=== PATIENT | female | born 1940 | race Caucasian/White ===

== ENCOUNTER 2018-08-16 18:37 | Emergency (ER) | payer MEDICARE ==
[~2018-08-16] VITALS: Ht 162.6 cm; Wt 60.2 kg
[~2018-08-16 18:37] MED LIST: ALBU4; ASPI81CH; CALCA500CH; DIGO.05EL; ELIQUIS5 MG; FLUSAL2505; FURO40; MONT10T; NEBI10; PRAM.5; Pravachol40 MG; TIOT18
[2018-08-16 19:25] LABS: BASOPHILS ABSOLUTE AUTO 0.03 K/mm3 (0.00-0.23); BASOPHILS PERCENT AUTO 0 % (0-2); EOSINOPHILS PERCENT AUTO 1 % (0-6); Hemoglobin 13.9 g/dL (11.5-16.0); IMMATURE GRAN ABSOLUTE AUTO 0.05 K/mm3 (0.00-0.10); IMMATURE GRAN PERCENT AUTO 1 % (0-1); LYMPHOCYTES ABSOLUTE AUTO 0.98 K/mm3 (0.84-5.20); LYMPHOCYTES PERCENT AUTO 10 % (21-46); MONOCYTES PERCENT AUTO 9 % (4-13); Mean Corpuscular HGB 27.7 pg (26.0-34.0); Mean Corpuscular HGB Conc 30.9 g/dL (31.5-36.5); Mean Corpuscular Volume 90 fL (80-100); NEUTROPHILS ABSOLUTE AUTO 7.48 K/mm3 (1.96-9.15); NEUTROPHILS PERCENT AUTO 79 % (41-73); Platelet Count 176 K/mm3 (150-400); RDW Coefficient Variation 12.8 % (11.7-14.2); Red Blood Cell Count 5.01 M/mm3 (3.80-5.20); White Blood Cell Count 9.44 K/mm3 (4.00-11.30)
[2018-08-16 19:46] LABS: Alanine Aminotransfer (ALT/SGP 21 U/L (12-78); Albumin, Blood 2.9 g/dL (3.4-5.0); Albumin/Globulin Ratio 0.5 (0.8-1.8); Alk Phos 122 U/L (50-136); Anion Gap 6 mmol/L (6-16); Aspartate Aminotrans (AST/SGOT 34 U/L (12-37); Bilirubin, Total 1.2 mg/dL (0.1-1.0); Blood Urea Nitrogen 15 mg/dL (8-24); Bun/Creatinine Ratio 22.7 (12.0-20.0); CO2, Blood 38 mmol/L (21-32); Chloride, Blood 92 mmol/L (98-108); Creatinine, Blood 0.66 mg/dL (0.40-1.00); Globulin, Blood 5.5 g/dL (2.2-4.0); Glomerular Filtration Rate >60 (60-); Glucose, Blood 94 mg/dL (70-99); Potassium, Blood 3.5 mmol/L (3.5-5.5); Sodium, Blood 136 mmol/L (136-145); Total Protein, Blood 8.4 g/dL (6.4-8.2); Troponin I 0.023 ng/mL (0.000-0.040)
[2018-08-16 21:04] LABS: Source, Urine Clean Catch
[2018-08-16 21:06] LABS: Bilirubin, Urine Neg (Neg); Blood, Urine 2+ (Neg); Glucose Qualitative, Urine Neg (Neg); Ketones, Urine Neg (Neg); Leukocyte Esterase, Urine 1+ (Neg); Nitrite, Urine Neg (Neg); Protein, Urine Neg (Neg); Specific Gravity, Urine 1.015 (1.003-1.022); Urobilinogen, Urine 2+ (Normal)
[2018-08-16 21:18] LABS: Appearance, Urine Hazy (Clear); Color, Urine Yellow (P-Yellow)
[2018-08-16 21:18] LABS: Influenza A Negative (NEGATIVE); Influenza B Negative (NEGATIVE)
[2018-08-16 21:20] LABS: Bacteria Mod /hpf; Red Blood Cells, Urine 0-2 /hpf (0-2); Squamous Epithelial Cells Few /hpf (Few)
[2018-08-16] MEDS ORDERED: Prednisone20 MG PO (21:59)
[2018-08-16] MEDS ORDERED: Avelox400 MG PO (21:59)
== END 2018-08-16 22:09 | disposition home or self-care (01) ==
LOC: ER 18:37
PROVIDERS: Emergency Medicine; Physician Assistant
DX: J44.1 Chronic obstructive pulmonary disease with (acute) exacerbation (principal); J44.0 Chronic obstructive pulmonary disease with (acute) lower respiratory infection; J18.9 Pneumonia, unspecified organism; I48.91 Unspecified atrial fibrillation; I25.10 Atherosclerotic heart disease of native coronary artery without angina pectoris; I10 Essential (primary) hypertension; Z88.8 Allergy status to other drugs, medicaments and biological substances; Z79.899 Other long term (current) drug therapy; Z79.82 Long term (current) use of aspirin; Z79.01 Long term (current) use of anticoagulants; Z87.891 Personal history of nicotine dependence
CPT/HCPCS: 36415; 71046; 80053; 81001; 83880; 84484; 85025; 87086; 87804; 93005; 93010; 94644; 96374; 99284-25; J2930

== ENCOUNTER → 2019-02-01 | Outpatient (CLI) | payer MEDICARE ==
[~2019-02-01] MED LIST changes: +Avelox400 MG PO; +Prednisone20 MG PO
== END | disposition home or self-care (01) ==
LOC: LAB EV 09:50
DX: J47.1 Bronchiectasis with (acute) exacerbation (principal)
CPT/HCPCS: 87070; 87077; 87186; 87205

== ENCOUNTER 2019-03-18 13:24 | Inpatient (IN) | payer MEDICARE ==
[~2019-03-18] VITALS: Ht 162.6 cm; Wt 54.3 kg
[~2019-03-18 13:24] MED LIST changes: -ASPI81CH; -FLUSAL2505
[2019-03-18 14:16] LABS: BASOPHILS ABSOLUTE AUTO 0.04 K/mm3 (0.00-0.23); BASOPHILS PERCENT AUTO 1 % (0-2); EOSINOPHILS ABSOLUTE AUTO 0.03 K/mm3 (0.00-0.68); EOSINOPHILS PERCENT AUTO 0 % (0-6); Hematocrit 37.9 % (33.0-51.0); Hemoglobin 11.4 g/dL (11.5-16.0); IMMATURE GRAN ABSOLUTE AUTO 0.04 K/mm3 (0.00-0.10); IMMATURE GRAN PERCENT AUTO 1 % (0-1); LYMPHOCYTES ABSOLUTE AUTO 0.73 K/mm3 (0.84-5.20); LYMPHOCYTES PERCENT AUTO 9 % (21-46); MONOCYTES ABSOLUTE AUTO 0.53 K/mm3 (0.16-1.47); MONOCYTES PERCENT AUTO 6 % (4-13); Mean Corpuscular HGB 26.7 pg (26.0-34.0); Mean Corpuscular HGB Conc 30.1 g/dL (31.5-36.5); Mean Corpuscular Volume 89 fL (80-100); Mean Platelet Volume 10.9 fL (9.1-12.4); NEUTROPHILS ABSOLUTE AUTO 7.08 K/mm3 (1.96-9.15); NEUTROPHILS PERCENT AUTO 84 % (41-73); Platelet Count 177 K/mm3 (150-400); RDW Coefficient Variation 13.6 % (11.7-14.2); RDW Standard Deviation 44.2 fL (35.1-46.3); Red Blood Cell Count 4.27 M/mm3 (3.80-5.20); White Blood Cell Count 8.45 K/mm3 (4.00-11.30)
[2019-03-18 14:38] LABS: Alanine Aminotransfer (ALT/SGP 27 U/L (12-78); Albumin, Blood 2.7 g/dL (3.4-5.0); Albumin/Globulin Ratio 0.5 (0.8-1.8); Alk Phos 120 U/L (50-136); Anion Gap 5 mmol/L (6-16); Aspartate Aminotrans (AST/SGOT 40 U/L (12-37); Bilirubin, Total 1.5 mg/dL (0.1-1.0); Blood Urea Nitrogen 24 mg/dL (8-24); Bun/Creatinine Ratio 31.5 (12.0-20.0); CO2, Blood 42 mmol/L (21-32); Calcium, Blood 9.4 mg/dL (8.5-10.1); Chloride, Blood 88 mmol/L (98-108); Creatinine, Blood 0.76 mg/dL (0.40-1.00); Globulin, Blood 5.5 g/dL (2.2-4.0); Glomerular Filtration Rate >60 (60-); Glucose, Blood 138 mg/dL (70-99); Potassium, Blood 3.2 mmol/L (3.5-5.5); Sodium, Blood 135 mmol/L (136-145); Total Protein, Blood 8.2 g/dL (6.4-8.2)
[2019-03-18 14:41] LABS: Troponin I 0.025 ng/mL (0.000-0.040)
[2019-03-18] MEDS ORDERED: FLUT1DIS5 INH ×2 (14:59→16:36)
[2019-03-18] MEDS ORDERED: Bystolic20 MG PO (14:59)
[2019-03-18] MEDS ORDERED: ELIQUIS5 MG PO (15:01)
[2019-03-18] MEDS ORDERED: GUAI600T33 PO (15:02)
[2019-03-18] MEDS ORDERED: FURO40 PO (15:02)
[2019-03-18] MEDS ORDERED: MONT10T PO (15:02)
[2019-03-18] MEDS ORDERED: Mirapex0.25 MG PO (15:03)
[2019-03-18] MEDS ORDERED: Prilosec Otc20 MG PO (15:03)
[2019-03-18] MEDS ORDERED: Pravachol40 MG PO (15:03)
[2019-03-18] MEDS ORDERED: ALBU90OI6 INH (15:04)
[2019-03-18] MEDS ORDERED: TIOT18 INH (15:05)
[2019-03-18] MEDS ORDERED: SPIR25 PO (15:05)
[2019-03-18] MEDS ORDERED: ASPI81CH PO (16:31)
[2019-03-18] MEDS ORDERED: THERA1 EACH PO (16:33)
[2019-03-18] MEDS ORDERED: Micro-K10 MEQ PO (16:35)
[2019-03-18] MEDS ORDERED: Flonase 0.05% N16 GM (16:36)
--- NOTE | 2019-03-18 18:21 | NUR ---
PT ADMITTED PT ADMITTED AT 1730. PT IN STABLE CONDITION WITH VSS. PT REQUIRES 3L O2 VIA NC TO SAT IN THE 90S. PT STATES HER BASELINE IS 3L WELL. PT ORIENTED TO ROOM & CALL LIGHT IN REACH. PT DESATS WITH ACIVITY. NO OTHER CHANGES IN ASSESSMENT AT THIS TIME. WILL CONTINUE TO MONITOR UNTIL TURNOVER IS COMPLETE.
--- NOTE | 2019-03-19 03:52 | NUR ---
PTS TELEMETRY REFLECTS AFIB WITH HEART RATE [address] COUN[address] [place] DR FORMAN ADIVSED WITH NO ORDERS EXCEPT TO CONTINUE MONITORING.
[2019-03-19 04:57] LABS: BASOPHILS PERCENT AUTO 0 % (0-2); EOSINOPHILS PERCENT AUTO 0 % (0-6); Hematocrit 36.9 % (33.0-51.0); Hemoglobin 11.2 g/dL (11.5-16.0); IMMATURE GRAN ABSOLUTE AUTO 0.03 K/mm3 (0.00-0.10); IMMATURE GRAN PERCENT AUTO 1 % (0-1); LYMPHOCYTES ABSOLUTE AUTO 0.42 K/mm3 (0.84-5.20); LYMPHOCYTES PERCENT AUTO 7 % (21-46); MONOCYTES ABSOLUTE AUTO 0.07 K/mm3 (0.16-1.47); MONOCYTES PERCENT AUTO 1 % (4-13); Mean Corpuscular HGB 26.5 pg (26.0-34.0); Mean Corpuscular HGB Conc 30.4 g/dL (31.5-36.5); Mean Corpuscular Volume 87 fL (80-100); Mean Platelet Volume 11.1 fL (9.1-12.4); NEUTROPHILS ABSOLUTE AUTO 5.15 K/mm3 (1.96-9.15); NEUTROPHILS PERCENT AUTO 91 % (41-73); Platelet Count 165 K/mm3 (150-400); RDW Coefficient Variation 13.7 % (11.7-14.2); RDW Standard Deviation 43.7 fL (35.1-46.3); Red Blood Cell Count 4.22 M/mm3 (3.80-5.20); White Blood Cell Count 5.67 K/mm3 (4.00-11.30)
--- NOTE | 2019-03-19 05:03 | NUR ---
0450 BP 91/56, HEART RATE 128, TELEMETRY REFLECTS AFIB. PT DENIES SOB OR CHEST PAIN, NO DIAPHRESIS NOTED. PT VOICED THAT SHE TOOK SOME OF OWN MEDS LAST NIGHT AT 2030: ELIQUIS 5MG AND SPIRIVA INHALER (THESE MEDS WERE AND OTHERS WERE PLACED IN LOCKED MEDICATION DRAWER OUTSIDE OF ROOM). THIS NURSE EDUCATED PATIENT ON NEED TO AVOID TAKING ANY OTHER MEDS FROM [facility] AND TO SEND EVERYTHING HOME. THIS NURSE ADVISED PHARMICIST--WAYLON OF THE ABOVE. DR PAGAN ADVISED OF THE ABOVE WITH ORDERS TO CONTINUE MONITORING. SUMMARY: 78 Y/O SLENDER FEMALE RESTED COMFORTABLY ALL EVENING. SEE NOTATION ABOVE FROM 0450. PT DENIES PAIN OR NAUSEA. PT HAPPY AND COOPERATIVE WITH STAFF WHILE WEARING O2 AT 3L/M PER NASAL CANNULA. PT CONTINUES TO HAVE +2 PITTING PEDAL EDEMA. PTS BED LOW POSITION, BED ALARM APPLIED, CALL LIGHT AT SIDE.
[2019-03-19 05:20] LABS: Alanine Aminotransfer (ALT/SGP 26 U/L (12-78); Albumin, Blood 2.5 g/dL (3.4-5.0); Albumin/Globulin Ratio 0.5 (0.8-1.8); Alk Phos 113 U/L (50-136); Anion Gap 8 mmol/L (6-16); Aspartate Aminotrans (AST/SGOT 41 U/L (12-37); Bilirubin, Total 0.9 mg/dL (0.1-1.0); Blood Urea Nitrogen 32 mg/dL (8-24); Bun/Creatinine Ratio 38.6 (12.0-20.0); CO2, Blood 37 mmol/L (21-32); Calcium, Blood 9.1 mg/dL (8.5-10.1); Chloride, Blood 88 mmol/L (98-108); Creatinine, Blood 0.83 mg/dL (0.40-1.00); Globulin, Blood 5.2 g/dL (2.2-4.0); Glomerular Filtration Rate >60 (60-); Glucose, Blood 175 mg/dL (70-99); Potassium, Blood 3.4 mmol/L (3.5-5.5); Sodium, Blood 133 mmol/L (136-145); Total Protein, Blood 7.7 g/dL (6.4-8.2)
[2019-03-19 05:29] LABS: Troponin I 0.017 ng/mL (0.000-0.040)
[2019-03-19 05:31] LABS: Digoxin (Lanoxin) <0.06 ug/mL (0.80-2.00)
--- NOTE | 2019-03-19 09:16 | NUR ---
ELEVATED HR. PCU ARCHIVIST POLITICAL HISTORY CALLED TO INFORM THIS RN THAT THE PT HR WAS INCREASING TO THE 130S-140S. VITAL SIGNS RETAKEN. BP 98/55 & HR 130. UNABLE TO GET MANUAL PULSE DUE TO SPEED & IRREGULARITY OF HR. DR. WAGNER NOTIFIED OF THIS. NO PHYSICAL CHANGES IN PT CONDITION. DR. WAGNER STATED HE WOULD ORDER DIGOXIN FOR THE PT TO BE GIVEN STAT. WILL CONTINUE TO MONITOR.
--- NOTE | 2019-03-19 12:57 | NUR ---
Pt visit this afternoon. Pt inquires about life sustaining measures. Started to educate on life sustaining measures and Pt requested to have her present for education. Pt reports that she will have bedside nurse contact palliative care when he arrives. Spoke with Pt's bedside nurse An and she expresses concerns of Pt and husbands level of understanding for code status and life sustaining measures. Palliative care will make visit when is present.
--- NOTE | 2019-03-19 13:55 | NUR ---
150-160 HR PCU BASKETBALL COACH NOTIFIED THIS RN THAT PT HR WAS INCREASED TO 150S-160S & IN AFIB. DR. WAGNER NOTIFIED OF THIS INFORMATION. STATED HE WANTS TO GIVE THE DIGOXIN A LITTLE LONGER TO WORK BEFORE GIVING ANYTHING IN ORDER PREVENT HYPOTENSION. PT IS CURRENTLY AT 100/69. STATED TO CONTINUE MONITORING PT FOR CHANGES. CHARGE NURSE, DIEGO NOTIFIED. WILL CONTINUE TO MONITOR.
--- NOTE | 2019-03-19 15:05 | NUR ---
Pt visit this afternoon. Pt's has arrived. Pt is A&Ox4 and denies pain at this time. Pt denies dyspnea at this time. She does report dyspnea with exertion. Engaged in therapeutic discussion regarding code staus and POLST. Educated Pt on life sustaining measures including risk factors with V/U made by both Pt and . Pt request to complete a POLST. reports Pt has an advance directive already completed but would like Pt to have both. Pt chooses DNR and Limited Treatment. Engaged in therapeutic conversation regarding advance care planing. Encouraged Pt to have routine discussions with PCP and specialists regarding her disease process and trajectory of disease in order to plan accordingly. Educated on the importance of planing of disease process and the need for care may increase. V/U made by both Pt and . No other concerns reported at this time. Spoke with Pt's bedside nurse An and she reports no other concerns at this time. Called and spoke with Dr Rivas regarding Pt's wishes and POLST. Dr Rivas reports that he will sign POLST when he visits Pt. Plan: Obtain copy of POLST once signed by . Will change code status to DNR in [facility] per V/O from Dr Rivas.
--- NOTE | 2019-03-19 17:39 | NUR ---
SHIFT SUMMARY PT CURRENTLY IN AFIB AT [address] [employer] WAGNER ORDERED METOPERAL 25MG TO BE GIVEN IMMEDIATELY AT 1600. HR DECREASED FROM THE 140S TO 100S. NO OTHER CHANGES IN ASSESSMENT AT THIS TIME. VSS. PT CONTINUES TO BE SOB W/ EXERTION. BEDSIDE COMMODE AT BEDSIDE FOR THIS REASON. PT PLEASANT & COOPERATIVE. MOIST COUGH OCCATIONALLY. WILL CONTINUE TO MONITOR UNTIL TURNOVER IS COMPLETE.
--- NOTE | 2019-03-19 22:47 | NUR ---
2220 PT BP 103/59, HEART RATE 130-140 PER MACHINE OR MACHINERY MECHANIC WAYLON, PT DENIES CHEST PAIN OR DYSPNEA, NO DIAPHRESIS NOTED. THIS NURSE CONTACT Catherine PASTOR NP WITH ORDERS RECEIVED TO GIVE LOPRESSOR 2.5MG IVP.
--- NOTE | 2019-03-20 04:26 | NUR ---
78 Y/O FEMALE RESTED COMFORTABLY ALL EVENING. PTS HEART RATE AT BEGINNING OF SHIFT WAS 120-130, TELEMETRY REFLECTS HEART RATE IN [employer] HOURS OF 100 PER HERITAGE CONSULTANT WAYLON. PT DENIES PAIN OR NAUSEA. PT ABLE TO TRANSFER FROM BED TO BSC WITHOUT ISSUE. PT EAGER TO RETURN HOME SOON WITH SPOUSE. PT DENIES PAIN OR NAUSEA. PTS BED LOW POSITION, CALL LIGHT AT SIDE.
[2019-03-20 05:49] LABS: BASOPHILS PERCENT AUTO 0 % (0-2); EOSINOPHILS PERCENT AUTO 0 % (0-6); Hematocrit 34.7 % (33.0-51.0); Hemoglobin 10.9 g/dL (11.5-16.0); IMMATURE GRAN ABSOLUTE AUTO 0.05 K/mm3 (0.00-0.10); IMMATURE GRAN PERCENT AUTO 1 % (0-1); LYMPHOCYTES ABSOLUTE AUTO 0.43 K/mm3 (0.84-5.20); LYMPHOCYTES PERCENT AUTO 5 % (21-46); MONOCYTES ABSOLUTE AUTO 0.29 K/mm3 (0.16-1.47); MONOCYTES PERCENT AUTO 3 % (4-13); Mean Corpuscular HGB 26.8 pg (26.0-34.0); Mean Corpuscular HGB Conc 31.4 g/dL (31.5-36.5); Mean Corpuscular Volume 86 fL (80-100); Mean Platelet Volume 11.2 fL (9.1-12.4); NEUTROPHILS ABSOLUTE AUTO 8.55 K/mm3 (1.96-9.15); NEUTROPHILS PERCENT AUTO 92 % (41-73); Platelet Count 170 K/mm3 (150-400); RDW Coefficient Variation 13.7 % (11.7-14.2); RDW Standard Deviation 42.4 fL (35.1-46.3); Red Blood Cell Count 4.06 M/mm3 (3.80-5.20); White Blood Cell Count 9.32 K/mm3 (4.00-11.30)
[2019-03-20 06:09] LABS: Albumin, Blood 2.6 g/dL (3.4-5.0); Anion Gap 6 mmol/L (6-16); Blood Urea Nitrogen 36 mg/dL (8-24); Bun/Creatinine Ratio 40.6 (12.0-20.0); CO2, Blood 38 mmol/L (21-32); Calcium, Blood 9.2 mg/dL (8.5-10.1); Chloride, Blood 91 mmol/L (98-108); Creatinine, Blood 0.89 mg/dL (0.40-1.00); Glomerular Filtration Rate >60 (60-); Glucose, Blood 134 mg/dL (70-99); Phosphorus, Blood 3.9 mg/dL (2.5-4.9); Potassium, Blood 4.2 mmol/L (3.5-5.5); Sodium, Blood 135 mmol/L (136-145)
[2019-03-20 06:10] LABS: Troponin I 0.028 ng/mL (0.000-0.040)
[2019-03-20] MEDS ORDERED: IRBE150 PO (09:58)
[2019-03-20] MEDS ORDERED: DIGOX125 MCG PO (09:59)
[2019-03-20] MEDS ORDERED: SPIR25 (10:00)
--- NOTE | 2019-03-20 11:19 | NUR ---
PT DISCHARGED PT DISCHARGED AT 1056. PT IN STABLE CONDITION WITH VSS. NO CHANGES IN ASSESSMENT AT THIS TIME. IV REMOVED & INTACT. PT & SPOUSE EDUCATED ON DC INSTRUCTIONS. BOTH STATED NO FURTHER QUESTIONS. PT WHEELED OUT BY ESCORT & DRIVEN HOME BY SPOUSE. PT MEDS FAXED TO [facility].
== END 2019-03-20 11:05 | disposition home or self-care (01) | DRG 291 ==
LOC: ER 13:24 → MEDS 16:10 → ENPENDDIS 03-20 09:35 → MEDS 03-20 11:05
PROVIDERS: Emergency Medicine; ADMIT Family Medicine
DX: I13.0 Hypertensive heart and chronic kidney disease with heart failure and stage 1 through stage 4 chronic kidney disease, or unspecified chronic kidney disease (principal); I50.33 Acute on chronic diastolic (congestive) heart failure; J96.01 Acute respiratory failure with hypoxia; J44.1 Chronic obstructive pulmonary disease with (acute) exacerbation; I13.10 Hypertensive heart and chronic kidney disease without heart failure, with stage 1 through stage 4 chronic kidney disease, or unspecified chronic kidney disease; I27.20 Pulmonary hypertension, unspecified; N18.9 Chronic kidney disease, unspecified; I27.81 Cor pulmonale (chronic); I48.2 Chronic atrial fibrillation; Z99.81 Dependence on supplemental oxygen; I95.9 Hypotension, unspecified; I25.10 Atherosclerotic heart disease of native coronary artery without angina pectoris; K21.9 Gastro-esophageal reflux disease without esophagitis; E78.5 Hyperlipidemia, unspecified; G47.33 Obstructive sleep apnea (adult) (pediatric); Z87.891 Personal history of nicotine dependence
CPT/HCPCS: 36415; 71046; 80053; 80069; 80162; 82947; 83605; 83735; 83880; 84484; 85025; 87040; 93005; 93010; 94640; 94760; 96365; 96375; 99285-25; J0456; J0696; J1940; J2930; J7050